=== PATIENT | male | born 1965 | race Caucasian/White ===

== ENCOUNTER 2024-04-16 06:47 | Outpatient (RCR) | payer BC, SELFPAY | END 2024-04-16 23:59 | disposition home or self-care (01) | LOC: RPT 06:47 | PROVIDERS: ATTENDING PHYSICIAN Physician Assistant Surgical | DX: M76.32 Iliotibial band syndrome, left leg (principal); Z73.6 Limitation of activities due to disability; R26.2 Difficulty in walking, not elsewhere classified; M62.81 Muscle weakness (generalized); X58.XXXD Exposure to other specified factors, subsequent encounter | CPT/HCPCS: 97116; 97161 ==

== ENCOUNTER 2024-05-24 16:33 | Outpatient (RCR) | payer BC, SELFPAY | END 2024-05-24 23:59 | disposition home or self-care (01) | LOC: RPT 16:33 | PROVIDERS: ATTENDING PHYSICIAN Physician Assistant Surgical | DX: M76.32 Iliotibial band syndrome, left leg (principal); Z73.6 Limitation of activities due to disability; R26.2 Difficulty in walking, not elsewhere classified; M62.81 Muscle weakness (generalized); S83.242D Other tear of medial meniscus, current injury, left knee, subsequent encounter; M17.12 Unilateral primary osteoarthritis, left knee; X58.XXXD Exposure to other specified factors, subsequent encounter | CPT/HCPCS: 97110 ==